=== PATIENT | male | born 1945 | race Caucasian/White ===

== ENCOUNTER 2021-05-19 06:58 | Emergency (ER) | payer MEDICARE, BC ==
[~2021-05-19] VITALS: Ht 175.3 cm; Wt 90.7 kg
[2021-05-19] MEDS ORDERED: AUGMENTIN 875-1 EACH PO (07:40)
== END 2021-05-19 07:30 | disposition home or self-care (01) ==
LOC: FSED 07:15
DX: J01.90 Acute sinusitis, unspecified (principal); H69.81 Other specified disorders of Eustachian tube, right ear; I25.10 Atherosclerotic heart disease of native coronary artery without angina pectoris; I10 Essential (primary) hypertension
CPT/HCPCS: 99282

== ENCOUNTER 2022-10-11 15:31 | Emergency (ER) | payer MEDICARE, BC ==
[~2022-10-11] VITALS: Ht 177.8 cm; Wt 90.4 kg
[~2022-10-11 15:31] MED LIST: AUGMENTIN 875-1 EACH PO
[2022-10-11] MEDS ORDERED: METAMUCIL POWD174 GM (15:59)
[2022-10-11] MEDS ORDERED: ALTOPREV40 MG PO (15:59)
[2022-10-11] MEDS ORDERED: PROBIOTIC & AC1 EACH PO (15:59)
[2022-10-11] MEDS ORDERED: VITAMIN D3125 MCG (15:59)
[2022-10-11] MEDS ORDERED: ASPIRIN EC81 MG PO (15:59)
[2022-10-11] MEDS ORDERED: VASOTEC10 M1 PO (15:59)
[2022-10-11] MEDS ORDERED: VITAMIN B-121000 MCG PO (15:59)
[2022-10-11] MEDS ORDERED: super beta prostate (15:59)
[2022-10-11] MEDS ORDERED: TAMIFLU75 MG PO (16:30)
[2022-10-11] MEDS ORDERED: PREDNISONE20 MG PO (16:30)
[2022-10-11] MEDS ORDERED: VENTOLIN HFA18 GM INH (16:30)
== END 2022-10-11 16:40 | disposition home or self-care (01) ==
LOC: FSED 15:42
DX: R50.9 Fever, unspecified (principal); J10.1 Influenza due to other identified influenza virus with other respiratory manifestations; R05.9 Cough, unspecified; I16.0 Hypertensive urgency; I10 Essential (primary) hypertension; I25.2 Old myocardial infarction; Z95.5 Presence of coronary angioplasty implant and graft
CPT/HCPCS: 71046; 83518; 87400; 99283

== ENCOUNTER 2022-11-19 20:25 | Emergency (ER) | payer MEDICARE, BC ==
[~2022-11-19] VITALS: Ht 177.8 cm; Wt 90.3 kg
[~2022-11-19 20:25] MED LIST changes: +ALTOPREV40 MG PO; +ASPIRIN EC81 MG PO; +METAMUCIL POWD174 GM; +PREDNISONE20 MG PO; +PROBIOTIC & AC1 EACH PO; +TAMIFLU75 MG PO; +VASOTEC10 M1 PO; +VENTOLIN HFA18 GM INH; +VITAMIN B-121000 MCG PO; +VITAMIN D3125 MCG; +super beta prostate
[2022-11-19] MEDS ORDERED: LIDOCAINE HCL 2% LOCAL 20 ML VIAL INJ STA (20:50)
[2022-11-19] MEDS ORDERED: TETANUS/DIPHTHERIA TOX ADULT 0.5 ML SYR IM STA (20:50)
[2022-11-19] MEDS ORDERED: ACETAMINOPHEN500 MG PO (21:06)
[2022-11-19] MEDS ORDERED: DOXYCYCLINE HY100 MG PO (21:06)
[2022-11-19] MEDS ORDERED: LIDOCAINE HCL 1% LOCAL INJ 20 ML VIAL ONE (21:12)
[2022-11-19] MEDS ORDERED: TETANUS/DIPHTHERIA TOX ADULT 0.5 ML SYR ONE (21:12)
== END 2022-11-19 22:32 | disposition home or self-care (01) ==
LOC: FSED 20:51
DX: S91.204A Unspecified open wound of right lesser toe(s) with damage to nail, initial encounter (principal); G89.11 Acute pain due to trauma; I10 Essential (primary) hypertension; I25.2 Old myocardial infarction; H91.8X9 Other specified hearing loss, unspecified ear; E78.5 Hyperlipidemia, unspecified; Z23 Encounter for immunization; W22.8XXA Striking against or struck by other objects, initial encounter; Y92.009 Unspecified place in unspecified non-institutional (private) residence as the place of occurrence of the external cause; Z88.8 Allergy status to other drugs, medicaments and biological substances; Z91.041 Radiographic dye allergy status; Z79.899 Other long term (current) drug therapy; Z79.82 Long term (current) use of aspirin; Z95.5 Presence of coronary angioplasty implant and graft
CPT/HCPCS: 12001; 73660; 90471 ×2; 90714; 99283; J2001